=== PATIENT | female | born 1950 | race Caucasian/White ===

== ENCOUNTER 2016-08-04 10:33 | Day surgery (SDC) | payer MEDICARE, BC ==
[~2016-08-04 10:33] MED LIST: ACTOS15 M1 PO; ALEVE220 M4 PO; AMARYL4 M1 PO; AMARYL4 MG PO; BABY ASPIRIN81 MG PO; BAYER CHEWABLE81 M2 PO; CIPRO250 M2 PO; CPAP; EQL FISH OIL 1,1 CA1 PO; FEOSOL325 M1 PO; FLAGYL500 M1 PO; FLAX SEED PO; GLUCOPHAGE XR500 MG PO; GLUCOPHAGE1000 M1 PO; LEVAQUIN500 M1 PO; LISINOPRIL5 M1 PO; LOVENOX120 MG/0.1 SC; MELOXICAM15 M1 PO; MUCINEX; MULTIVITAMINS1 EAC7 PO; PERCOCET 5-3251 EACH PO; PRAVACHOL40 M1 PO; PRAVACHOL40 MG PO; PROBIOTIC PO; TOPROL XL50 M1 PO; VERAPAMIL HCL120 MG PO; VITAMIN D31000 UNI3 PO; XARELTO15 M1 PO; XARELTO20 M1 PO; [UNRECOGNIZED DRUG - MIXTURE] PO
[2016-11-09] MEDS ORDERED: CEPHALEXIN500 M1 PO (11:00)
[2016-11-09] MEDS ORDERED: FLOMAX0.4 M1 PO (11:00)
[2016-11-09] MEDS ORDERED: NORCO 5-325 TA1 EACH PO (11:00)
[2016-11-09] MEDS ORDERED: COMPAZINE10 MG PO (11:00)
== END 2016-08-04 15:20 ==
LOC: SHSB 10:33 → ORW 12:53 → PACU 13:45 → SHSB 14:10
PROC: 0TF68ZZ Fragmentation in Right Ureter, Via Natural or Artificial Opening Endoscopic (ICD-10-PCS; principal; 2016-08-04)
PROC: 0T768DZ Dilation of Right Ureter with Intraluminal Device, Via Natural or Artificial Opening Endoscopic (ICD-10-PCS; 2016-08-04)
DX: N20.1 Calculus of ureter (principal); I10 Essential (primary) hypertension; E11.9 Type 2 diabetes mellitus without complications; Z87.19 Personal history of other diseases of the digestive system; G47.30 Sleep apnea, unspecified; Z98.890 Other specified postprocedural states; E66.01 Morbid (severe) obesity due to excess calories; Z90.710 Acquired absence of both cervix and uterus; Z79.899 Other long term (current) drug therapy; Z68.42 Body mass index [BMI] 45.0-49.9, adult
CPT/HCPCS: C1769; C2617; J1956

== ENCOUNTER 2016-10-01 15:12 | Observation (INO) | payer MEDICARE, BC ==
[2016-10-01] MEDS ORDERED: ULTRAM50 M1 PO (17:28)
[2016-10-01] MEDS ORDERED: TYLENOL EXTRA500 M1 PO (17:28)
[2016-10-01 18:13] LABS: BASO % 0.3 % (0-2); EOS % 2.9 % (0-7); EOSINOPHIL ABSOLUTE COUNT 0.2 tho/cmm (0.0-0.7); HCT-HEMATOCRIT 37.3 % (34.0-49.0); IMMATURE GRANULOCYTES ABSOLUTE 0.01 tho/cmm (0-0.03); IMMATURE GRANULOCYTES PERCENT 0.2 % (0-0.3); LYMPH % 26.6 % (20-45); LYMPH ABSOLUTE COUNT 1.8 tho/cmm (0.8-4.5); MCH (MEAN CORPUSCULAR HGB) 31.7 pg (28.0-32.0); MCHC MEAN CORPUSCULAR HGB CONC 32.2 % (32.0-36.0); MCV (MEAN CELL VOLUME) 98.7 fl (82.0-96.0); MEAN PLATELET VOLUME 10.4 cmc (9.4-12.4); MONO % 9.6 % (0-12); MONOCYTE ABSOLUTE COUNT 0.6 tho/cmm (0.0-1.2); NEUTROPHILS % 60.4 % (40-80); PLATELET COUNT 293 tho/cmm (150-450); RED BLOOD COUNT 3.78 mil/cmm (4.00-5.20); RED CELL DISTRIBUTION WIDTH 13.7 % (12.4-16.4); WHITE BLOOD COUNT 6.6 tho/cmm (4.0-10.0)
[2016-10-01 18:20] LABS: INR 1.5 INR (0.9-1.1); PROTHROMBIN TIME 17.6 SECONDS (9.0-13.6)
[2016-10-01 18:28] LABS: ANION GAP 13 mmol/L (0-20); BLOOD UREA NITROGEN 24 mg/dl (6-24); CALCIUM 9.6 mg/dl (8.5-10.5); CARBON DIOXIDE-VENOUS 27 mmol/L (22-32); CHLORIDE 108 mmol/l (96-110); CREATININE 0.72 mg/dl (0.50-1.10); GLUCOSE 79 mg/dL (70-110); POTASSIUM 4.1 mmol/L (3.7-5.1); SODIUM 144 mmol/L (135-145); eGFR VALUE FOR BLACK >90 mL/Min
[2016-10-01 18:56] LABS: URINE APPEARANCE CLEAR; URINE BILIRUBIN NEGATIVE (NEG); URINE BLOOD NEGATIVE (NEG); URINE COLOR YELLOW; URINE GLUCOSE (UA) NEGATIVE (NEG); URINE KETONE NEGATIVE (NEG); URINE LEUKOCYTE ESTERASE NEGATIVE (NEG); URINE NITRITE NEGATIVE (NEG); URINE PROTEIN MODERATE (NEG); URINE SPECIFIC GRAVITY 1.015 (1.003-1.030)
[2016-10-01 19:08] LABS: URINE EPITHELIAL CELLS 0-2 /[HPF] (0-10); URINE RBC 0-1 /[HPF] (0-5)
[2016-10-02 06:10] LABS: BASO % 0.7 % (0-2); EOS % 3.5 % (0-7); EOSINOPHIL ABSOLUTE COUNT 0.2 tho/cmm (0.0-0.7); HCT-HEMATOCRIT 34.9 % (34.0-49.0); IMMATURE GRANULOCYTES ABSOLUTE 0.02 tho/cmm (0-0.03); IMMATURE GRANULOCYTES PERCENT 0.4 % (0-0.3); LYMPH % 26.1 % (20-45); LYMPH ABSOLUTE COUNT 1.5 tho/cmm (0.8-4.5); MCH (MEAN CORPUSCULAR HGB) 31.1 pg (28.0-32.0); MCHC MEAN CORPUSCULAR HGB CONC 31.5 % (32.0-36.0); MCV (MEAN CELL VOLUME) 98.6 fl (82.0-96.0); MEAN PLATELET VOLUME 10.5 cmc (9.4-12.4); MONO % 9.8 % (0-12); MONOCYTE ABSOLUTE COUNT 0.6 tho/cmm (0.0-1.2); NEUTROPHIL ABSOLUTE COUNT 3.4 tho/cmm (1.6-8.0); NEUTROPHIL-AUTOMATED 3.4 tho/cmm (1.6-8.0); NEUTROPHILS % 59.5 % (40-80); PLATELET COUNT 263 tho/cmm (150-450); RED BLOOD COUNT 3.54 mil/cmm (4.00-5.20); RED CELL DISTRIBUTION WIDTH 13.7 % (12.4-16.4); WHITE BLOOD COUNT 5.7 tho/cmm (4.0-10.0)
[2016-10-02 06:25] LABS: ALB/GLOB RATIO 0.7 (0.8-2.0); ALBUMIN 2.9 g/dl (3.5-5.0); ALKALINE PHOSPHATASE 55 U/L (33-138); ALT/SGPT 17 U/L (12-78); ANION GAP 13 mmol/L (0-20); AST/SGOT 23 U/L (10-40); BILIRUBIN,TOTAL 0.3 mg/dl (0-1.5); BLOOD UREA NITROGEN 20 mg/dl (6-24); CALCIUM 8.9 mg/dl (8.5-10.5); CARBON DIOXIDE-VENOUS 25 mmol/L (22-32); CHLORIDE 109 mmol/l (96-110); CREATININE 0.67 mg/dl (0.50-1.10); POTASSIUM 4.1 mmol/L (3.7-5.1); SODIUM 143 mmol/L (135-145); eGFR VALUE FOR BLACK >90 mL/Min
[2016-10-02 06:27] LABS: GLUCOSE 128 mg/dL (70-110)
[2016-10-03] MEDS ORDERED: SENNA S TABLET1 EACH PO (12:43)
[2016-11-09] MEDS ORDERED: COMPAZINE10 MG PO (11:00)
[2016-11-09] MEDS ORDERED: CEPHALEXIN500 M1 PO (11:00)
[2016-11-09] MEDS ORDERED: NORCO 5-325 TA1 EACH PO (11:00)
[2016-11-09] MEDS ORDERED: FLOMAX0.4 M1 PO (11:00)
== END 2016-10-03 13:47 ==
LOC: EDMED 15:12 → EMR2 19:26 → CAR1 19:54
PROVIDERS: Emergency Medicine; Internal Medicine; ADMIT Hospitalist
DX: S76.012A Strain of muscle, fascia and tendon of left hip, initial encounter (principal); M25.552 Pain in left hip; M16.12 Unilateral primary osteoarthritis, left hip; E11.9 Type 2 diabetes mellitus without complications; I10 Essential (primary) hypertension; E78.5 Hyperlipidemia, unspecified; G47.33 Obstructive sleep apnea (adult) (pediatric); J44.9 Chronic obstructive pulmonary disease, unspecified; Z79.01 Long term (current) use of anticoagulants; Z79.84 Long term (current) use of oral hypoglycemic drugs; Z79.899 Other long term (current) drug therapy; Z85.89 Personal history of malignant neoplasm of other organs and systems; Z86.711 Personal history of pulmonary embolism; Z90.49 Acquired absence of other specified parts of digestive tract; Z90.710 Acquired absence of both cervix and uterus; Z90.89 Acquired absence of other organs; Z98.890 Other specified postprocedural states
CPT/HCPCS: G0378; G8978-GP-CK; G8979-GP-CJ; G8980-GP-CJ; G8987-GO-CK; G8988-GO-CJ; G8989-GO-CK; J2060; J7030